=== PATIENT | male | born 1975 | race Caucasian/White ===

== ENCOUNTER 2016-06-05 11:06 | Emergency (ER) | payer MEDICARE, MEDICAID ==
[~2016-06-05] VITALS: Ht 175.3 cm; Wt 68.0 kg
[2016-06-05] MEDS ORDERED: LANTUS INS100 UNITS/ SC (11:41)
[2016-06-05 11:42] LABS: ALLEN'S TEST PATIENT UNABLE; ARTERIAL ABE 9.1 MMOL/L (-2.4-+2.3); ARTERIAL PO2 59.1 MMHG (80-100); ARTERIAL TCO2 38.1 MMOL/L (23-27); OXYGEN 100% NRB
[2016-06-05] MEDS ORDERED: RELION NOVOL100 U/M1 SQ (11:42)
[2016-06-05 11:43] LABS: HEMOGLOBIN 10.8 g/dL (14.1-18.0); LYMPH # 1.2 K/mm3 (0.7-4.5); LYMPH % 11.2 % (10-50)
[2016-06-05] MEDS ORDERED: LOVENOX 4040 MG/0.4 SC (11:43)
--- NOTE | 2016-06-05 11:43 | Emergency Room Report ---
History of Present Illness Time Seen by [id number] Presenting Problem in Triage Pt arrived:Ambulance Stretcher Presenting Problem:PT WITH HISTORY OF GTUBE PLACEMENT AND NON FUNCTIONING DISORDER THAT NH COULDN'T GIVE IN REPORT BECAUSE THE REPORTING NURSE WAS UNAWRE OF DX ACCORDING TO PAPERS, HISTORY INCLUDES HYPOXIC HYPERCAPNIC RESP. FAILURE . HX OF MR ACCORDING PAPERWORK, BACTREMIA, SEPTIC SHOCK . PT PRESENTS WITH DECREASED O2 AND DIFFICULTY RESPONDING. 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 N Clinical Suspician of Infection? Y Mental Status: 3 - Acutely Altered Sepsis Risk:Severe Sepsis Risk Have you (or family members/close friends) recently traveled outside the [place]? N If Yes, where/when: Have you had exposure to infectious disease within the past month? TB? Other? Specify: Source RN notes reviewed, family, RN/MD, EMS notes reviewed Exam Limitations clinical condition Comment This is a 40-year-old male patient, fdc resident from [facility], brought in by EMS for lethargy and shortness of breath, associated with low pulse oximetry readings. assisted staff is suspecting possible aspiration (patient has a G-tube). Mother stated that he has a history of mental recommendation, however in May 2015 he became septic after a ruptured pilonidal cyst, and the patient ended up admitted at [facility], on a ventilator, for several months, subsequently being transferred to [facility], and being converted to a trach. Mother said that since this events her son has been bedridden. Eventually the tracheostomy was terminated and [facility] patient was switched to oxygen by [place] only. ALLERGIES Coded Allergies: No Known Allergies (06/05/16) Home Medications Reported Medications Insulin Glargine (Lantus Insulin Vial) 20 UNITS SC QHS INSULIN REGULAR, HUMAN (Novolin R) 10 UNITS SQ Q6H ENOXAPARIN SODIUM (Lovenox) 40 MG SC DAILY Lidocaine 1 EACH TP PRN PRN UNKNOWN Aspirin (Adult Low Dose Aspirin EC) 81 MG GT DAILY Famotidine (Pepcid 20MG Tablet) 20 MG GT BID Ferrous Sulfate (Iron Tablet) 325 MG GT BID Polyethylene Glycol 3350 (Miralax) 17 GM GT BID MULTIVITAMIN (Multivitamins) 1 SGL GT BID Senna Pod (Senna Laxative) 1 TAB GT DAILY Atorvastatin Calcium (Lipitor 10MG) 10 MG GT QHS SERTRALINE HYDROCHLORIDE (Zoloft 100MG) 100 MG GT DAILY Temazepam (Restoril 30MG) 30 MG GT QHS Guaifenesin (Guaifenesin Expectorant) 15 ML GT Q6H Doxazosin Mesylate (Doxazosin 4MG Tablet) 4 MG GT QHS HYDROCODONE/ACETAMINOPHEN (Lortab 5-325 MG Tablet) 1 TAB GT Q6HP PRN PAIN Lorazepam (Ativan) 0.5 MG GT TIDP PRN ANXIETY/AGITATION ALBUTEROL (Albuterol 0.083% Neb) 2.5 MG INH Q6H History Medical History Immunization Hx Ped.Immunizations UTD Yes DT/Tetanus 5-10 Years Ago Surgical Hx Previous Surgery?N Social History Smoking Hx Smoker: Never Smoker Tobacco: No Are you/the child exposed to second-hand smoke: No Alcohol Alcohol: No Review of Systems All Other Systems Reviewed and Negative Respiratory cough, shortness of breath Psychiatric/Neurological weakness, other (lethargy) Physical Exam Vital Signs Vital Signs Date Time Temp Pulse Resp B/P Pulse O2 O2 Flow FiO2 Ox Delivery Rate 06/05 1425 88 18 106/72 96 06/05 1405 88 20 136/79 99 06/05 1333 103 14 106/64 85 06/05 1330 88 20 141/86 99 06/05 1327 99 22 139/84 99 06/05 1324 85 18 133/84 100 06/05 1321 84 20 140/85 100 06/05 1315 92 OXYGEN 06/05 1219 99 18 94/46 90 06/05 1123 97.6 116 18 122/70 84 General Appearance normal appearance, WD/WN, mild distress Neck normal inspection, non-tender, supple, full range of motion Respiratory Status Yes: trachea midline, chest symmetrical, non tender chest. No: respiratory distress. Lung Sounds anterior: wheezing (absent left sided BS). posterior: wheezing (absent left sided BS). bilateral: wheezing (absent left sided BS). left: wheezing (absent left sided BS). right: wheezing (absent left sided BS). Cardiovascular normal exam, regular rate/rhythm, no peripheral edema, no gallop, no JVD, no murmur, no rub, normal peripheral pulses Gastrointestinal normal bowel sounds, normal exam, non tender, soft, no organomegaly Neurologic alert, bedridden, slurred speech (chronic), alert x2 Mental status depressed affect Skin normal color, warm/dry, trach scar with small leak Medical Decision Making LABS/Meds/Orders Pt receiving controlled substance in ED? No Comment 11:53am-d/w Dr. Olsen, who advised patient more than likely has a LEFT mainstem bronchial obstruction with a food bolus/particle, causing opacification of the whole LEFT hemithorax. A possible pneumonia or pleural effusion cannot be ruled out completely. Dr. Olsen recommended a CT scan with IV contrast for better assessment, if possible/medically reasonable. Patient was re-evaluated, his pulse oximetry appears to be 88-90% on 100% nonrebreather, in no obvious respiratory distress. I think it is reasonable to attempt to send patient to a CT scan of the chest with IV contrast, SIMULTANEOUSLY with starting making arrangements for him to be transferred to [facility]. Will get local pulmunologist involved, to see if it will be possible to perform a bronchoscopy JUAN. 11:56am-case d/w Dr Scott, registered route associate, working today in the specialty clinic at the [facility], advised of patient's presentation, medical history, x-ray findings and ED course. Dr. Scott pulled up the patient's chest x-ray obtained minutes earlier and agreed that a bronchoscopy will be needed in order to retrieve the LEFT mainstem bronchus food bolus/material. However, Dr. Scott stated that he is unable to perform such procedure at our facility and patient will need to be transferred to [facility], and he recommended initiating the call with [facility]. 11:59am-call initiated with [facility] regarding the patient's need to be TRANSFERRED to . 12:05am-case d/w ER attending dr. Smith, who accepted the patient, but requested pulmonology to be involved as well, and requested Dr. Villa to be consulted prior to transfer. 12:31-d/w Dr. Villa, advised of patient's presentation, chest x-ray findings, blood work and vital signs. Dr. Villa accepted patient has consultation, and eventually Intensive Care Unit admission, but requested patient to be intubated prior to transfer. *Prior to intubation patient had an NG tube placement with significant amount of gastric content (Jevity) suctioned. 13:00-case d/w Dr Olsen-significant improvement of LEFT hemithorax opacification. Patient is medically stable, clinically significantly improved, after intubation (no complications). [employer] here at 14:15. [employer] departed at 14:40 with the patient. Prior to patient's transfer had a lengthy discussion with the mother advising her of potential complications, as well as patient's dire situation, including potential complications (sepsis) such as sudden , loss of current lifestyle , etc. Results/Orders Laboratory Tests 06/05/16 1120: ABG pH 7.29 L, ABG pCO2 (Temp Corrct 76.7 H, ABG pO2 (Temp Correct 59.1 L, ABG HCO3 35.7 H, ABG Total CO2 38.1 H, ABG O2 Sat (Calculated) 86.4 *L, ABG Base Excess 9.1 H, José Test PATIENT UNABLE, Blood Gas Comments RIGHT RADIAL, Urine Color YELLOW, Urine Appearance CLEAR, Urine pH 5.5, Ur Specific [place] 1.010, Urine Protein NEGATIVE, Urine Ketones NEGATIVE, Urine Blood NEGATIVE, Urine Nitrate NEGATIVE, Urine Bilirubin NEGATIVE, Urine Urobilinogen 0.2, Ur Leukocyte Esterase NEGATIVE, Urine RBC OCC, Urine WBC 3-5, Urine Bacteria 3+, Hyaline Casts OCC, Fine Granular Casts OCC, Urine Glucose NEGATIVE 06/05/16 1100: Lactic Acid 1.6 06/05/16 1100: Sodium 134 L, Potassium 5.4 H, Chloride 94 L, Carbon Dioxide 37 H, BUN 34 H , Creatinine 0.6 L, Estimated Creat Clear 158, Estimated GFR (MDRD) 149, Glucose 346 H, Calcium 9.5, Total Bilirubin 0.4, AST 15, ALT 34, Alkaline Phosphatase 126 H, Creatine Kinase 56, CK-MB (CK-2) Rel Index 6.3 H, CK and CKMB Interp 3.5, Troponin I 0.03, Total Protein 7.2, Albumin 2.7 L, Globulin 4.5 H, Albumin/Globulin Ratio 0.6 L, PT 10.7, INR 1.00, WBC 10.8, RBC 3.76 L, Hgb 10.8 L, Hct 33.3 L, MCV 88.6, RDW 16.7, Plt Count 176, MPV 5.9 L, Gran % 84.0 H, Gran # 9.1 H, Lymphocytes % 11.2, Monocytes % 3.6, Eosinophils % 0.6, Basophils % 0.5, Lymphocytes # 1.2, Monocytes # 0.4, Eosinophils # 0.1, Basophils # 0.1, PUBS MCHC 32.4, MCH 28.8 Current Medication Orders Sig/Jeffery Start time Last Medication Dose Route Stop Time Status Admin Propofol 100 ML .Q25H 06/05 1330 AC 06/05 IV 1315 Sodium Chloride 1,000 ML .STK-MED ONE 06/05 1309 DC IV Propofol 100 ML .STK-MED ONE 06/05 1248 DC IV Miscellaneous 0 .STK-MED ONE 06/05 1247 DC XX Miscellaneous 1 EACH PRN PRN 06/05 1244 DC Information XX 06/05 1444 Albuterol/Ipratropium 3 ML ONCE ONE 06/05 1200 DC 06/05 INH 06/05 1201 1230 Albuterol/Ipratropium 0 .STK-MED ONE 06/05 1155 DC INH Sodium Chloride 1,000 ML .STK-MED ONE 06/05 1146 DC IV Aztreonam 2 GM ONCE ONE 06/05 1145 DCr 06/05 Sodium Chloride 100 ML IV 06/05 1214 1200 Piperacillin Sod/ 4.5 GM ONCE ONE 06/05 1145 DCr 06/05 Tazobactam Sod IV 06/05 1214 1205 Sodium Chloride 100 ML Sodium Chloride 10 ML PRN PRN 06/05 1145 AC IV 06/06 1133 Sodium Chloride 1,000 ML .Q1H1M 06/05 1145 DC 06/05 IV 06/05 1245 1205 Sodium Chloride 10 ML PRN PRN 06/05 1145 AC IV 06/06 1145 Orders Procedure Date/time Status DIET-NOTHING BY MOUTH 06/05 D Active VENTILATOR INSTALLATION 06/05 1350 Complete RT Ventilator Initial Installa 06/05 1343 Active RT Sputum Specimen, Collected 06/05 1343 Active RT Pulse Oximetry, Provide 06/05 1343 Active RT Intubation, Assist 06/05 1343 Active RT Aerosol Treatment, Provide 06/05 1343 Active CHEST-PORTABLE 06/05 1259 Active FSBS REQUEST BY CARE AREA 06/05 1224 Active CULTURE, SPUTUM 06/05 1218 Active RESP THERAPY REQUEST (GENERAL) 06/[address] CHEST SCAN REQ 06/05 1214 Complete RT REQUEST DUONEB 06/05 1153 Active PROTHROMBIN TIME 06/05 1150 Complete RECORD I & O 06/05 1145 Active KENNEL ATTENDANT 06/05 1145 Active IV SALINE LOCK 06/05 1136 Active URINARY CATHETER INSERT 06/05 1136 Active CULTURE, BLOOD 06/05 1136 Active URINALYSIS/COMPLETE 06/05 1136 Complete LACTIC ACID 06/05 1136 Complete CBC WITH AUTO DIFF 06/05 1136 Complete CARDIAC ENZYMES 06/05 1136 Complete CHEM 12 PROFILE 06/05 1136 Complete ELECTROCARDIOGRAM REQUEST 06/05 1132 Active ARTERIAL BLOOD GAS REQUEST 06/05 1132 Active 12 LEAD EKG-BESSON (INITIAL) 06/05 1130 Active CULTURE, URINE 06/05 1120 Active CM/EKG CM/chipper operator Rhythm Atrial Fibrillation Rate 116 Ectopy Yes (PVCs) Comments no acute ischemic changes EKG rate (115), rhythm (IIR) XRAY/CT/US XRAY/CT/US 1 XRAY chest XR interpretation by discussed w/radiologist (dr Olsen) Xray Results see report (left hemithorax complete opacification suggestive of bronchial obstruction) XRAY/CT/US [address] interpretation by discussed w/radiologist (Raúl) CT Results LEFT lung is collapsed to the hilum, with possible pneumonia/ pleural effusion. His also an infiltrate in the RIGHT lower lung. XRAY/CT/US 3 XRAY chest XR interpretation by discussed w/radiologist (Raúl) Xray Results postintubation chest x-ray -- see radiologist's report consistent with significant improved aeration of LEFT hemithorax, ET tube in good position. Procedures Intubation Intubation Risks/benefits discussed with pt/guardian? Yes (to the mother) Time of Intubation 1312 Intubation Method orotracheal Tube Size (cm) 8.0 Medications Etomidate mg- Breath Sounds after Intubation: equal Intubation Complications no complications Post Intubation Xray Yes Departure Departure Time of Disposition 0 Disposition DC/XFER from ER to [facility] Clinical Impression Primary Impression: Hypoxia Secondary Impressions: Aspiration into respiratory tract Qualifiers: Encounter type: initial encounter Qualified Code: T17.908A - Unspecified foreign body in respiratory tract, part unspecified causing other injury, initial encounter Hypercapnia Respiratory acidosis Condition STABLE Referrals NO REFERRAL (PCP) ED Critical Care Critical Care Yes Time spent 30-74 min Vital system(s) involved: Respiratory Failure I was present at bedside for Coordinating pt's care, Interpreting EKGs/Strips , During my initial exam, Reviewing lab results, Reviewing old records, Discussing pt condition, For re-examinations, Examining radiographs If Critical Care minutes are documented, the time involved in the performance of seperately reportable procedures was not counted toward critical care time documented. I directly delivered medical care to this critically ill and/or injured patient. Timely evaluation and treatment was necessary to address the significant organ system(s) dysfunction present in this patient. at [id number]
--- NOTE | 2016-06-05 11:43 | Emergency Room Report ---
History of Present Illness Time Seen by [id number] Presenting Problem in Triage Pt arrived:Ambulance Stretcher Presenting Problem:PT WITH HISTORY OF GTUBE PLACEMENT AND NON FUNCTIONING DISORDER THAT NH COULDN'T GIVE IN REPORT BECAUSE THE REPORTING NURSE WAS UNAWRE OF DX ACCORDING TO PAPERS, HISTORY INCLUDES HYPOXIC HYPERCAPNIC RESP. FAILURE . HX OF MR ACCORDING PAPERWORK, BACTREMIA, SEPTIC SHOCK . PT PRESENTS WITH DECREASED O2 AND DIFFICULTY RESPONDING. Onset of symptoms date/time:/ or onset unknown for:MEDICAL HX UNKNOWN Treatment Prior to Arrival: PIT BOSS Provided by: Sepsis Risk Assessment: Temp: 97.6 B/P: 122/70 MAP: 87 Pulse: 116 Resp: 18 Recent fever? N Clinical Suspician of Infection? Y Mental Status: 3 - Acutely Altered Sepsis Risk:Severe Sepsis Risk Have you (or family members/close friends) recently traveled outside the [place]? N If Yes, where/when: Have you had exposure to infectious disease within the past month? TB? Other? Specify: Source RN notes reviewed, family, RN/MD, EMS notes reviewed Exam Limitations clinical condition Comment This is a 40-year-old male patient, [facility] resident from [facility], brought in by EMS for lethargy and shortness of breath, associated with low pulse oximetry readings. [facility] staff is suspecting possible aspiration (patient has a G-tube). Mother stated that he has a history of mental recommendation, however in May 2015 he became septic after a ruptured pilonidal cyst, and the patient ended up admitted at [facility], on a ventilator, for several months, subsequently being transferred to [facility], and being converted to a trach. Mother said that since this events her son has been bedridden. Eventually the tracheostomy was terminated and [facility] patient was switched to oxygen by CO only. ALLERGIES Coded Allergies: No Known Allergies (06/05/16) Home Medications Reported Medications Insulin Glargine (Lantus Insulin Vial) 20 UNITS SC QHS INSULIN REGULAR, HUMAN (Novolin R) 10 UNITS SQ Q6H ENOXAPARIN SODIUM (Lovenox) 40 MG SC DAILY Lidocaine 1 EACH TP PRN PRN UNKNOWN Aspirin (Adult Low Dose Aspirin EC) 81 MG GT DAILY Famotidine (Pepcid 20MG Tablet) 20 MG GT BID Ferrous Sulfate (Iron Tablet) 325 MG GT BID Polyethylene Glycol 3350 (Miralax) 17 GM GT BID MULTIVITAMIN (Multivitamins) 1 SGL GT BID Senna Pod (Senna Laxative) 1 TAB GT DAILY Atorvastatin Calcium (Lipitor 10MG) 10 MG GT QHS SERTRALINE HYDROCHLORIDE (Zoloft 100MG) 100 MG GT DAILY Temazepam (Restoril 30MG) 30 MG GT QHS Guaifenesin (Guaifenesin Expectorant) 15 ML GT Q6H Doxazosin Mesylate (Doxazosin 4MG Tablet) 4 MG GT QHS HYDROCODONE/ACETAMINOPHEN (Lortab 5-325 MG Tablet) 1 TAB GT Q6HP PRN PAIN Lorazepam (Ativan) 0.5 MG GT TIDP PRN ANXIETY/AGITATION ALBUTEROL (Albuterol 0.083% Neb) 2.5 MG INH Q6H History Medical History Immunization Hx Ped.Immunizations UTD Yes DT/Tetanus 5-10 Years Ago Surgical Hx Previous Surgery?N Social History Smoking Hx Smoker: Never Smoker Tobacco: No Are you/the child exposed to second-hand smoke: No Alcohol Alcohol: No Review of Systems All Other Systems Reviewed and Negative Respiratory cough, shortness of breath Psychiatric/Neurological weakness, other (lethargy) Physical Exam Vital Signs Vital Signs Date Time Temp Pulse Resp B/P Pulse O2 O2 Flow FiO2 Ox Delivery Rate 06/05 1425 88 18 106/72 96 06/05 1405 88 20 136/79 99 06/05 1333 103 14 106/64 85 06/05 1330 88 20 141/86 99 06/05 1327 99 22 139/84 99 06/05 1324 85 18 133/84 100 06/05 1321 84 20 140/85 100 06/05 1315 92 OXYGEN 06/05 1219 99 18 94/46 90 06/05 1123 97.6 116 18 122/70 84 General Appearance normal appearance, WD/WN, mild distress Neck normal inspection, non-tender, supple, full range of motion Respiratory Status Yes: trachea midline, chest symmetrical, non tender chest. No: respiratory distress. Lung Sounds anterior: wheezing (absent left sided BS). posterior: wheezing (absent left sided BS). bilateral: wheezing (absent left sided BS). left: wheezing (absent left sided BS). right: wheezing (absent left sided BS). Cardiovascular normal exam, regular rate/rhythm, no peripheral edema, no gallop, no JVD, no murmur, no rub, normal peripheral pulses Gastrointestinal normal bowel sounds, normal exam, non tender, soft, no organomegaly Neurologic alert, bedridden, slurred speech (chronic), alert x2 Mental status depressed affect Skin normal color, warm/dry, trach scar with small leak Medical Decision Making LABS/Meds/Orders Pt receiving controlled substance in ED? No Comment 11:53am-d/w Dr. Olsen, who advised patient more than likely has a LEFT mainstem bronchial obstruction with a food bolus/particle, causing opacification of the whole LEFT hemithorax. A possible pneumonia or pleural effusion cannot be ruled out completely. Dr. Olsen recommended a CT scan with IV contrast for better assessment, if possible/medically reasonable. Patient was re-evaluated, his pulse oximetry appears to be 88-90% on 100% nonrebreather, in no obvious respiratory distress. I think it is reasonable to attempt to send patient to a CT scan of the chest with IV contrast, SIMULTANEOUSLY with starting making arrangements for him to be transferred to [facility]. Will get local pulmunologist involved, to see if it will be possible to perform a bronchoscopy JUAN. 11:56am-case d/w Dr Scott, gas compressor operator, working today in the specialty clinic at the [facility], advised of patient's presentation, medical history, x-ray findings and ED course. Dr. Scott pulled up the patient's chest x-ray obtained minutes earlier and agreed that a bronchoscopy will be needed in order to retrieve the LEFT mainstem bronchus food bolus/material. However, Dr. Scott stated that he is unable to perform such procedure at our facility and patient will need to be transferred to [facility], and he recommended initiating the call with [facility]. 11:59am-call initiated with [facility] regarding the patient's need to be TRANSFERRED to . 12:05am-case d/w ER attending dr. Smith, who accepted the patient, but requested pulmonology to be involved as well, and requested Dr. Villa to be consulted prior to transfer. 12:31-d/w Dr. Villa, advised of patient's presentation, chest x-ray findings, blood work and vital signs. Dr. Villa accepted patient has consultation, and eventually Intensive Care Unit admission, but requested patient to be intubated prior to transfer. *Prior to intubation patient had an NG tube placement with significant amount of gastric content (Jevity) suctioned. 13:00-case d/w Dr Olsen-significant improvement of LEFT hemithorax opacification. Patient is medically stable, clinically significantly improved, after intubation (no complications). [employer] here at 14:15. [employer] departed at 14:40 with the patient. Prior to patient's transfer had a lengthy discussion with the mother advising her of potential complications, as well as patient's dire situation, including potential complications (sepsis) such as sudden , loss of current lifestyle , etc. Results/Orders Laboratory Tests 06/05/16 1120: ABG pH 7.29 L, ABG pCO2 (Temp Corrct 76.7 H, ABG pO2 (Temp Correct 59.1 L, ABG HCO3 35.7 H, ABG Total CO2 38.1 H, ABG O2 Sat (Calculated) 86.4 *L, ABG Base Excess 9.1 H, José Test PATIENT UNABLE, Blood Gas Comments RIGHT RADIAL, Urine Color YELLOW, Urine Appearance CLEAR, Urine pH 5.5, Ur Specific [place] 1.010, Urine Protein NEGATIVE, Urine Ketones NEGATIVE, Urine Blood NEGATIVE, Urine Nitrate NEGATIVE, Urine Bilirubin NEGATIVE, Urine Urobilinogen 0.2, Ur Leukocyte Esterase NEGATIVE, Urine RBC OCC, Urine WBC 3-5, Urine Bacteria 3+, Hyaline Casts OCC, Fine Granular Casts OCC, Urine Glucose NEGATIVE 06/05/16 1100: Lactic Acid 1.6 06/05/16 1100: Sodium 134 L, Potassium 5.4 H, Chloride 94 L, Carbon Dioxide 37 H, BUN 34 H , Creatinine 0.6 L, Estimated Creat Clear 158, Estimated GFR (MDRD) 149, Glucose 346 H, Calcium 9.5, Total Bilirubin 0.4, AST 15, ALT 34, Alkaline Phosphatase 126 H, Creatine Kinase 56, CK-MB (CK-2) Rel Index 6.3 H, CK and CKMB Interp 3.5, Troponin I 0.03, Total Protein 7.2, Albumin 2.7 L, Globulin 4.5 H, Albumin/Globulin Ratio 0.6 L, PT 10.7, INR 1.00, WBC 10.8, RBC 3.76 L, Hgb 10.8 L, Hct 33.3 L, MCV 88.6, RDW 16.7, Plt Count 176, MPV 5.9 L, Gran % 84.0 H, Gran # 9.1 H, Lymphocytes % 11.2, Monocytes % 3.6, Eosinophils % 0.6, Basophils % 0.5, Lymphocytes # 1.2, Monocytes # 0.4, Eosinophils # 0.1, Basophils # 0.1, PUBS MCHC 32.4, MCH 28.8 Current Medication Orders Sig/Jeffery Start time Last Medication Dose Route Stop Time Status Admin Propofol 100 ML .Q25H 06/05 1330 AC 06/05 IV 1315 Sodium Chloride 1,000 ML .STK-MED ONE 06/05 1309 DC IV Propofol 100 ML .STK-MED ONE 06/05 1248 DC IV Miscellaneous 0 .STK-MED ONE 06/05 1247 DC XX Miscellaneous 1 EACH PRN PRN 06/05 1244 DC Information XX 06/05 1444 Albuterol/Ipratropium 3 ML ONCE ONE 06/05 1200 DC 06/05 INH 06/05 1201 1230 Albuterol/Ipratropium 0 .STK-MED ONE 06/05 1155 DC INH Sodium Chloride 1,000 ML .STK-MED ONE 06/05 1146 DC IV Aztreonam 2 GM ONCE ONE 06/05 1145 DCr 06/05 Sodium Chloride 100 ML IV 06/05 1214 1200 Piperacillin Sod/ 4.5 GM ONCE ONE 06/05 1145 DCr 06/05 Tazobactam Sod IV 06/05 1214 1205 Sodium Chloride 100 ML Sodium Chloride 10 ML PRN PRN 06/05 1145 AC IV 06/06 1133 Sodium Chloride 1,000 ML .Q1H1M 06/05 1145 DC 06/05 IV 06/05 1245 1205 Sodium Chloride 10 ML PRN PRN 06/05 1145 AC IV 06/06 1145 Orders Procedure Date/time Status DIET-NOTHING BY MOUTH 06/05 D Active VENTILATOR INSTALLATION 06/05 1350 Complete RT Ventilator Initial Installa 06/05 1343 Active RT Sputum Specimen, Collected 06/05 1343 Active RT Pulse Oximetry, Provide 06/05 1343 Active RT Intubation, Assist 06/05 1343 Active RT Aerosol Treatment, Provide 06/05 1343 Active CHEST-PORTABLE 06/05 1259 Active FSBS REQUEST BY CARE AREA 06/05 1224 Active CULTURE, SPUTUM 06/05 1218 Active RESP THERAPY REQUEST (GENERAL) 06/[address] CHEST SCAN REQ 06/05 1214 Complete RT REQUEST DUONEB 06/05 1153 Active PROTHROMBIN TIME 06/05 1150 Complete RECORD I & O 06/05 1145 Active LIFE SCIENCES MANAGER 06/05 1145 Active IV SALINE LOCK 06/05 1136 Active URINARY CATHETER INSERT 06/05 1136 Active CULTURE, BLOOD 06/05 1136 Active URINALYSIS/COMPLETE 06/05 1136 Complete LACTIC ACID 06/05 1136 Complete CBC WITH AUTO DIFF 06/05 1136 Complete CARDIAC ENZYMES 06/05 1136 Complete CHEM 12 PROFILE 06/05 1136 Complete ELECTROCARDIOGRAM REQUEST 06/05 1132 Active ARTERIAL BLOOD GAS REQUEST 06/05 1132 Active 12 LEAD EKG-BESSON (INITIAL) 06/05 1130 Active CULTURE, URINE 06/05 1120 Active CM/EKG CM/tabular typist Rhythm Atrial Fibrillation Rate 116 Ectopy Yes (PVCs) Comments no acute ischemic changes EKG rate (115), rhythm (IIR) XRAY/CT/US XRAY/CT/US 1 XRAY chest XR interpretation by discussed w/radiologist (dr Olsen) Xray Results see report (left hemithorax complete opacification suggestive of bronchial obstruction) XRAY/CT/US [address] interpretation by discussed w/radiologist (Raúl) CT Results LEFT lung is collapsed to the hilum, with possible pneumonia/ pleural effusion. His also an infiltrate in the RIGHT lower lung. XRAY/CT/US 3 XRAY chest XR interpretation by discussed w/radiologist (Raúl) Xray Results postintubation chest x-ray -- see radiologist's report consistent with significant improved aeration of LEFT hemithorax, ET tube in good position. Procedures Intubation Intubation Risks/benefits discussed with pt/guardian? Yes (to the mother) Time of Intubation 1312 Intubation Method orotracheal Tube Size (cm) 8.0 Medications Etomidate mg- Breath Sounds after Intubation: equal Intubation Complications no complications Post Intubation Xray Yes Departure Departure Time of Disposition 0 Disposition DC/XFER from ER to [facility] Clinical Impression Primary Impression: Hypoxia Secondary Impressions: Aspiration into respiratory tract Qualifiers: Encounter type: initial encounter Qualified Code: T17.908A - Unspecified foreign body in respiratory tract, part unspecified causing other injury, initial encounter Hypercapnia Respiratory acidosis Condition STABLE Referrals NO REFERRAL (PCP) ED Critical Care Critical Care Yes Time spent 30-74 min Vital system(s) involved: Respiratory Failure I was present at bedside for Coordinating pt's care, Interpreting EKGs/Strips , During my initial exam, Reviewing lab results, Reviewing old records, Discussing pt condition, For re-examinations, Examining radiographs If Critical Care minutes are documented, the time involved in the performance of seperately reportable procedures was not counted toward critical care time documented. I directly delivered medical care to this critically ill and/or injured patient. Timely evaluation and treatment was necessary to address the significant organ system(s) dysfunction present in this patient. at [id number]
[2016-06-05] MEDS ORDERED: LIDOCAINE1 EACH TP (11:44)
[2016-06-05 11:45] LABS: URINE BILIRUBIN - DIPSTICK NEGATIVE (NEG); URINE BLOOD NEGATIVE (NEG)
[2016-06-05] MEDS ORDERED: ADULT LOW DOSE81 MG GT (11:46)
[2016-06-05] MEDS ORDERED: PEPCID 20MG TAB20 MG GT (11:47)
[2016-06-05] MEDS ORDERED: IRON TABLETS325 MG GT (11:48)
[2016-06-05] MEDS ORDERED: MIRALAX17 GM/PACK GT (11:49)
[2016-06-05] MEDS ORDERED: MULTIVITAMIN1 SGL GT (11:51)
[2016-06-05] MEDS ORDERED: SENNA LAXATIVE8.6 MG GT (11:54)
[2016-06-05] MEDS ORDERED: FLOMAX 0.4MG C0.4 MG GT (11:55)
[2016-06-05] MEDS ORDERED: LIPITOR10 MG GT (11:56)
[2016-06-05] MEDS ORDERED: PROSCAR 5MG TABL5 MG GT (11:57)
[2016-06-05] MEDS ORDERED: ZOLOFT100 MG GT (11:59)
[2016-06-05] MEDS ORDERED: RESTORIL 30MG C30 MG GT (12:00)
[2016-06-05] MEDS ORDERED: GUAIFENESI100 MG/52 GT (12:01)
[2016-06-05] MEDS ORDERED: DOXAZOSIN 4MG TA4 MG GT (12:02)
[2016-06-05] MEDS ORDERED: LORTAB 5/3251 TAB GT (12:03)
[2016-06-05] MEDS ORDERED: ATIVAN GENERIC0.5 MG GT (12:04)
[2016-06-05] MEDS ORDERED: ALBUTEROL2.5 MG/NEB INH (12:11)
--- NOTE | 2016-06-05 13:26 | RADIOLOGY REPORT PS360 ---
CT CHEST W/O CONTRAST ORDERING PHYSICIAN : Margarito Liriano MD PATIENT AGE: 40 years GENDER: Male INDICATION: EVALUATE FOR FB--HYPOXIA TECHNIQUE: Helical CT scanning performed the chest with no IV contrast. Sagittal coronal reconstruction CT workstation COMPARISON: Plain film chest from today FINDINGS LEFT CHEST. Total collapse consolidation of entire left lung- both COLBY and LLL. Left lung is basically airless withOnly some very scant residual air bronchograms faintly evident.. Pronounced volume loss with prominent shift of mediastinum to the left. , As well as, elevation left hemidiaphragm . soft tissue material filling & totally obstructing the left main bronchus as well as other central airways.. I tend to favor mucoid obstruction of the left bronchus. Tumor might less likely at this point, however lack lack of IV contrast makes it difficult to discern lung tissue from other structures here at left chema Otherwise Only question scant pleural fluid at posterior sulcus here on left. Very minimal. There is a small 4 mm round calcification left lung base just above the left hemidiaphragm Old granuloma. More superiorly near the left lower lobe bronchus is a second 4.5 mm round calcified density. Favor granuloma at inferior left chema. Minimal calcification superior to the left chema most likely calcified granulomatous lymph node.. I see no convincing foreign body within the left airway and favor mucoid impaction and obstruction of airways, but these findings warrant follow-up CT to further exclude such. RIGHT LUNG. : Collapse consolidation of the RLL. As well as partial collapse RML. However airway remains patent leading to the RLL & RML, with air bronchograms are seen throughout the L and RLL. Right upper lobe remains aerated with vascular but with some minor airspace disease posteriorly also mild vascular engorgement. There is marked shift of the mediastinum to the left as stated due to the severe volume loss left chest due to the severely atelectatic and collapsed left lung.. Scattered small/ moderate-sized reactive nodes throughout the mediastinum . No pathologic nodes or central masses. Cardiomegaly with heart displaced to the left along with mediastinum. Likely tricuspid valve replacement versus calcified valve. Clinical correlation required Upper abdomen. A G-tube in place with moderate distended, moderate fluid filled stomach. Spleen. 14 cm in length. But normal AP dimension on axial images. Adrenals unremarkable. Chest wall no rib fractures nor lesions. No significant findings at spine only mild degenerative changes IMPRESSION 1. Total collapse & atelectasis entire left lung.- Nearly airless LLL andLUL The resulting prominent volume loss results in marked shifted of mediastinum to left with elevation left hemidiaphragm Soft tissue material fills left bronchus & left airways -most likely reflecting mucoid material. Unlikely tumor at this point but will require follow-up CT 2. Collapse and severe atelectasis also seen at RLL and RML. However we continue see a patent airway leading to these latter segments and air bronchograms throughout RmL and RLL. 3. Only the right upper lobe remains well aerated, with scant airspace disease along its posterior aspect 4. Vascular engorgement right upper lobe. May reflect altered dynamics 5. Cardiomegaly. Probable Tricuspid valve prosthesis (vs calcification tricuspid valve) 6. There are some small calcifications at the left lung most likely reflecting granulomas. No good evidence of endobronchial foreign body on today's studies
--- NOTE | 2016-06-05 13:51 | RADIOLOGY REPORT PS360 ---
CHEST-PORTABLE ORDERING PHYSICIAN : Margarito Liriano MD PATIENT AGE: 40 years GENDER: Male INDICATION: chest symptomsSOA . Mental compromised [facility] patient PROCEDURE: CHEST-PORTABLE COMPARISON: None available FINDINGS: Diffuse whiteout opacification of left hemithorax. Marked shifted mediastinum to the left reflects the volume loss and collapse of the left lung only some minimal air bronchograms faintly seen centrally to the left but otherwise airless collapse left lung. Left hemidiaphragm left heart are obscured by this process. Cannot exclude small pleural effusion. Right upper lung appears hyperaerated. Question there may be collapse at the right lower lobe as well but would require lateral or CT to further evaluate I would recommend CT in this patient's chest to further evaluate. With contrast preferred if feasible IMPRESSION 1. Total opacification and whiteout left lung . This reflects complete collapse and consolidation of the left lung with marked shift of mediastinum to the left 2. Suspect right lower lobe collapse as well with hyperexpansion at the right upper lobe
--- NOTE | 2016-06-05 13:51 | RADIOLOGY REPORT PS360 ---
CHEST-PORTABLE ORDERING PHYSICIAN : Margarito Liriano MD PATIENT AGE: 40 years GENDER: Male INDICATION: chest symptomsSOA . Mental compromised group home patient PROCEDURE: CHEST-PORTABLE COMPARISON: None available FINDINGS: Diffuse whiteout opacification of left hemithorax. Marked shifted mediastinum to the left reflects the volume loss and collapse of the left lung only some minimal air bronchograms faintly seen centrally to the left but otherwise airless collapse left lung. Left hemidiaphragm left heart are obscured by this process. Cannot exclude small pleural effusion. Right upper lung appears hyperaerated. Question there may be collapse at the right lower lobe as well but would require lateral or CT to further evaluate I would recommend CT in this patient's chest to further evaluate. With contrast preferred if feasible IMPRESSION 1. Total opacification and whiteout left lung . This reflects complete collapse and consolidation of the left lung with marked shift of mediastinum to the left 2. Suspect right lower lobe collapse as well with hyperexpansion at the right upper lobe
[2016-06-05 14:25] VITALS: BP 106/72
--- NOTE | 2016-06-05 19:26 | RADIOLOGY REPORT PS360 ---
CHEST-PORTABLE#2 at 1250 ORDERING PHYSICIAN : Margarito Liriano MD PATIENT AGE: 40 years GENDER: Male INDICATION: chest symptomsNGTUBE AND INTUBATION PROCEDURE: CHEST-PORTABLE COMPARISON: Chest.. Portable chest from earlier today FINDINGS: ET tube now in place. Satisfactory position 2.7 cm above kieran. NG tube is in place passing beneath diaphragm and and continued well into the stomach. There is improved expansion of lung nieves bilaterally. Previous total whiteout and opacification at the left chest now with partial reexpansion of the left upper lobe evident. At the right hemothorax on recent CT noted collapse of RLL and RML with hyperexpanded right upper lobe. We now see partial reexpansion I believe both the right lower & right middle lobe.. On CT the airways are patent to these lobes but mucoid material totally obstructed left bronchus. IMPRESSION ET tube and NG tube now in place, satisfactory position. Partial reexpansion of collapsed left lung partial expansion of the right middle and right lower lobe.
== END 2016-06-05 14:30 | disposition short-term general hospital (02) ==
LOC: ER 11:06
PROVIDERS: Emergency Medicine
PROC: 0BH17EZ Insertion of Endotracheal Airway into Trachea, Via Natural or Artificial Opening (ICD-10-PCS; principal; 2016-06-05)
PROC: 5A1935Z Respiratory Ventilation, Less than 24 Consecutive Hours (ICD-10-PCS; principal; 2016-06-05)
DX: T17.908A Unspecified foreign body in respiratory tract, part unspecified causing other injury, initial encounter (principal); J96.02 Acute respiratory failure with hypercapnia; E87.2 Acidosis
CPT/HCPCS: J2543; J2704